=== PATIENT | male | born 1965 | race Caucasian/White ===

== ENCOUNTER → 2016-10-09 | Outpatient (CLI) | payer BC ==
[~2016-10-09] MED LIST: HYDR-3419 PO; LRT5 PO; MULT-506 PO; ONDA4TAB46 PO; OXYC-57 PO
== END | disposition home or self-care (01) ==
LOC: C.LABSPEC 17:49
PROVIDERS: ATTEND Nurse Practitioner Adult Health
DX: N20.0 Calculus of kidney (principal); R10.9 Unspecified abdominal pain

== ENCOUNTER → 2016-10-19 | Outpatient (CLI) | payer BC ==
--- NOTE | 2016-10-19 14:56 | DIAGNOSTIC IMAGING REPORT ---
KUB CLINICAL HISTORY: R10.9 Left flank [id number] flank pain COMPARISON STUDY: 10/01/2009 FINDINGS: Bilateral nephrocalcinosis. Nonobstructive bowel pattern. Calcification adjacent to the left transverse process of L3. IMPRESSION:. Mid left ureteral calculus measuring 6 x 2.5 mm. This is medially inferior to the left transverse process of L3. Bilateral nephrocalcinosis unchanged in the prior study. Nonobstructive bowel pattern. Electronically signed by: Chau Awan M.D. 10/19/2016 2:55 PM Dictated Date/Time: 10/19/2016 2:47 PM
== END | disposition home or self-care (01) ==
LOC: C.RAD 14:25
PROVIDERS: ATTEND Nurse Practitioner Adult Health
DX: R10.9 Unspecified abdominal pain (principal)

== ENCOUNTER → 2016-10-23 | Outpatient (CLI) | payer BC ==
[~2016-10-23] MED LIST changes: -LRT5 PO; -ONDA4TAB46 PO
--- NOTE | 2016-10-23 15:44 | DIAGNOSTIC IMAGING REPORT ---
TWO VIEW CHEST CLINICAL HISTORY: Nephrolithiasis. Preoperative examination. FINDINGS: PA and lateral chest radiographs are obtained. No prior studies are available for comparison at the time of dictation. The cardiomediastinal silhouette is unremarkable. There is minimal bibasilar atelectasis. The lungs and pleural spaces are otherwise clear. There is no pneumothorax. The bony thorax appears intact. IMPRESSION: No active disease in the chest. Electronically signed by: Quinton Goode M.D. 10/23/2016 3:43 PM Dictated Date/Time: 10/23/2016 3:42 PM
[2016-10-23 15:50] LABS: BASO % 0.5 %; BASO ABS # 0.04 K/uL (0-0.2); COMPLETE YES; EOS % 1.7 %; HEMATOCRIT 43.9 % (42-52); IG% 0.3 %; LYMPH % 30.4 %; LYMPH ABS # 2.27 K/uL (1.2-3.4); MEAN CELL VOLUME 83.8 fL (80-100); MEAN CORPUSCULAR HEMOGLOBIN 29.6 pg (25-34); MEAN CORPUSCULAR HGB CONC 35.3 g/dl (32-36); MEAN PLATELET VOLUME 9.1 fL (7.4-10.4); MONO % 10.6 %; NEUT % 56.5 %; PLATELET COUNT 260 K/uL (130-400); RED BLOOD COUNT 5.24 M/uL (4.7-6.1); WHITE BLOOD COUNT 7.47 K/uL (4.8-10.8)
[2016-10-23 16:11] LABS: BLOOD UREA NITROGEN 18 mg/dl (7-18); BUN/CREATININE RATIO 14.1 (10-20); CARBON DIOXIDE 27 mmol/L (21-32); CHLORIDE 109 mmol/L (98-107); POTASSIUM 3.9 mmol/L (3.5-5.1); SODIUM 144 mmol/L (136-145)
== END | disposition home or self-care (01) ==
LOC: C.CPL 15:12
PROVIDERS: ATTEND Urology
DX: N20.0 Calculus of kidney (principal)

== ENCOUNTER → 2016-10-26 | Outpatient (CLI) | payer BC ==
--- NOTE | 2016-10-26 17:01 | DIAGNOSTIC IMAGING REPORT ---
KUB CLINICAL HISTORY: N20.0 Nephrolithiasis nephrocalcinosis COMPARISON STUDY: 10/19/2016 FINDINGS: Mid left ureteral calculus has migrated distally approximately 1.5 cm. It is now medially inferior to the left transverse process of L3. Left renal nephrocalcinosis is similar. Right kidney is obscured currently by overlying bowel content. IMPRESSION: Left mid ureteral calculus slightly distal in terms of location as compared to the prior exam. Unchanging nephrocalcinosis. Electronically signed by: Chau Awan M.D. 10/26/2016 5:00 PM Dictated Date/Time: 10/26/2016 4:59 PM
== END | disposition home or self-care (01) ==
LOC: C.RAD 16:47
PROVIDERS: ATTEND Urology
DX: N20.0 Calculus of kidney (principal)

== ENCOUNTER → 2016-10-27 | Day surgery (SDC) | payer BC ==
[2016-10-20 10:48] VITALS: Ht 172.7 cm; Wt 86.4 kg
[~2016-10-27] VITALS: Ht 172.7 cm; Wt 86.4 kg
[~2016-10-27] MED LIST changes: +ATROPINE SULFATE 0.1 MG/ML 5ML SYR IV PRN; +CIPROFLOXACIN 400MG / D5W IV SCH; +DEXAMETHASONE SOD INJ 4 MG/ML VIAL ONE; +EpHEDrine SULFATE INJ 50 MG/ML AMP IV PRN; +FENTANYL CITRATE INJ 50 MCG/1 ML 2 ML VIAL IV PRN; +FENTANYL CITRATE INJ 50 MCG/1 ML 2 ML VIAL ONE; +FLUMAZENIL 0.1 MG/1 ML 10 ML VIAL IV PRN; +HYDROmorphone INJ 2 MG/ML SYR/VIAL IV PRN; +HydrALAZINE HCL 20 MG/ML VIAL IM STA; +HydrALAZINE HCL 20 MG/ML VIAL ONE; +LABETALOL HCL IV 5 MG/ML 20ML IV PRN; +LACTATED RINGER'S 1000ML 1,000 ML IV SCH; +LIDOCAINE HCL 2% 2 ML VIAL (20MG/ML) ONE; +MEPERIDINE HCL 25 MG/ML CARP IV PRN; +MIDAZOLAM HCL 1 MG/ML 2ML VIAL ONE; +NALOXONE HCL 0.4 MG/1 ML VIAL/CARP IV PRN; +ONDANSETRON INJ 2 MG/ML 2 ML VIAL IV PRN; +ONDANSETRON INJ 2 MG/ML 2 ML VIAL ONE; +PHENYLEPHRINE 100MCG/ML 5ML SYR IV PRN; +PROPOFOL IV EMULSION 10 MG/ML 20 ML VIAL IV ONE
--- NOTE | 2016-10-27 07:02 | History & Physical Bridge - SC ---
H&P Re-Evaluation Bridge Note: I have examined the patient, reviewed the History & Physical and in the interval since the performance of the History & Physical I have noted the following changes of clinical significance: No changes noted
--- NOTE | 2016-10-27 07:43 | [facility] Post Operative Brief Note ---
Immediate Operative Summary Operative Date Oct 27, 2016. Pre-Operative Diagnosis Left Ureteral Calculi Post-Operative Diagnosis Same Procedure(s) Performed Left Extracorporeal Shock Wave Lithotripsy - Ureteral Surgeon Dr. Saulo Reese Pt Sitter Surgeon(s) None Estimated Blood Loss 0 mL Findings stone in mid proximal l ureter Specimens None
--- NOTE | 2016-10-27 07:46 | Discharge Instructions-SurgCtr ---
Discharge Instructions Date of Service Oct 27, 2016. Visit Reason for Visit: Stones Discharge Discharge Diagnosis / Problem: left ureteral stone Discharge Goals Goal(s): Decrease discomfort, Increase independence, Improve disease control Activity Recommendations Activity Limitations: resume your previous activity Lifting Limitations: none Anesthesia . Post Anesthesia Instructions: If you have had General Anesthesia or IV Sedation: * Do not drive today. * Resume driving when surgeon permits. * Do not make important decisions or sign legal documents today. * Call surgeon for: 1. Temperature elevations greater than 101 degrees F. 2. Uncontrollable pain. 3. Excessive bleeding. 4. Persistent nausea and vomiting. 5. Medication intolerance (nausea, vomiting or rash). * For nausea and vomiting use only clear liquids such as: tea, soda, bouillon until nausea subsides, then gradually increase diet as tolerated. * If you have any concerns or questions, call your surgeon's office. If physician is unavailable and it is an emergency, call 911 or go to the nearest emergency room. . Diet Recommendations Home Diet: resume previous diet Procedures Procedures Performed: Left Extracorporeal Shock Wave Lithotripsy - Ureteral Pending Studies Studies pending at discharge: no Medical Emergencies . Who to Call and When: Medical Emergencies: If at any time you feel your situation is an emergency, please call 911 immediately. . Non-Emergent Contact Non-Emergency issues call your: Urologist Call Non-Emergent contact if: temperature is above 101 (no driving on narcotics ) . . "Provider Documentation" section prepared by Jaylen Reese.
--- NOTE | 2016-10-27 08:58 | Anesthesia Progress Nt - [facility] ---
Anesthesia Post Op Note Date & Time Oct 27, 2016 at 08:57 Vital Signs Pain Intensity: 2 Vital Signs Past 12 Hours Date Time Temp Pulse Resp B/P Pulse Ox O2 Delivery O2 Flow Rate FiO2 10/27/16 08:48 36.4 10/27/16 08:46 72 5 98 10/27/16 08:46 70 5 10/27/16 08:45 152/97 10/27/16 08:41 67 3 10/27/16 08:41 68 3 97 10/27/16 08:40 144/97 10/27/16 08:36 64 2 10/27/16 08:36 64 2 97 10/27/16 08:35 151/101 10/27/16 08:31 63 3 97 10/27/16 08:31 63 3 10/27/16 08:30 155/104 10/27/16 08:26 65 9 10/27/16 08:26 66 9 97 10/27/16 08:25 151/105 10/27/16 08:21 63 0 97 10/27/16 08:21 63 0 10/27/16 08:20 148/100 10/27/16 08:16 65 0 97 10/27/16 08:16 65 0 10/27/16 08:15 156/98 10/27/16 08:11 72 16 10/27/16 08:11 73 16 97 10/27/16 08:10 144/102 10/27/16 08:06 67 18 97 10/27/16 08:06 68 18 10/27/16 08:05 155/98 10/27/16 08:01 74 20 97 10/27/16 08:01 74 20 10/27/16 08:00 74 16 149/95 97 Room Air 10/27/16 08:00 149/95 10/27/16 07:56 76 2 99 10/27/16 07:56 77 2 10/27/16 07:55 159/101 10/27/16 07:51 85 5 99 10/27/16 07:51 84 5 10/27/16 07:50 158/105 10/27/16 07:46 91 10/27/16 07:46 89 158/93 99 10/27/16 07:44 36.4 91 16 158/93 98 Diffusion Mask 5 3/31/17 06:25 37 70 16 174/100 98 Room Air Notes Mental Status: alert / awake / arousable, participated in evaluation Pt Amnestic to Procedure: Yes Nausea / Vomiting: adequately controlled Pain: adequately controlled Airway Patency, RR, SpO2: stable & adequate BP & HR: stable & adequate, see Notes Hydration State: stable & adequate Anesthetic Complications: no major complications apparent The patient was given labetalol and hydralazine in the PACU for HTN.
[2016-10-27 09:13] VITALS: TEMP 36.8
[2016-10-27 09:20] VITALS: PULSE 64; O2SAT 98
[2016-10-27 09:33] VITALS: BP 180/95
--- NOTE | 2016-10-27 12:14 | OPERATIVE REPORT ---
DATE OF OPERATION: 10/27/2016 PREOPERATIVE DIAGNOSIS: Left ureteral stone. POSTOPERATIVE DIAGNOSIS: Same. PROCEDURE PERFORMED: Left ESWL. SURGEON: Dr. Reese. INDICATIONS: The patient is a 51-year-old male with a left ureteral stone who presented a week ago, could not have procedure done because he was on aspirin and for definitive ESWL. DESCRIPTION OF THE PROCEDURE: He was taken to the operating room with antibiotics and Venodyne stockings. He was given general anesthesia, placed in supine position. The camera was positioned, overtopped and the stone was visualized in 2 views and he received 3000 shocks, the majority at level 6. At the end of the procedure, he was transferred to the recovery room in stable condition. I attest to the content of the Intraoperative Record and any orders documented therein. Any exceptio ns are noted below.
== END | disposition home or self-care (01) ==
LOC: X.SURG 06:09
PROVIDERS: ATTEND Urology
DX: N20.1 Calculus of ureter (principal); Z87.442 Personal history of urinary calculi; B02.9 Zoster without complications; Z83.3 Family history of diabetes mellitus

== ENCOUNTER → 2016-11-07 | Outpatient (CLI) | payer BC ==
[~2016-11-07] MED LIST changes: -ATROPINE SULFATE 0.1 MG/ML 5ML SYR IV PRN; -CIPROFLOXACIN 400MG / D5W IV SCH; -DEXAMETHASONE SOD INJ 4 MG/ML VIAL ONE; -EpHEDrine SULFATE INJ 50 MG/ML AMP IV PRN; -FENTANYL CITRATE INJ 50 MCG/1 ML 2 ML VIAL IV PRN; -FENTANYL CITRATE INJ 50 MCG/1 ML 2 ML VIAL ONE; -FLUMAZENIL 0.1 MG/1 ML 10 ML VIAL IV PRN; -HYDROmorphone INJ 2 MG/ML SYR/VIAL IV PRN; -HydrALAZINE HCL 20 MG/ML VIAL IM STA; -HydrALAZINE HCL 20 MG/ML VIAL ONE; -LABETALOL HCL IV 5 MG/ML 20ML IV PRN; -LACTATED RINGER'S 1000ML 1,000 ML IV SCH; -LIDOCAINE HCL 2% 2 ML VIAL (20MG/ML) ONE; -MEPERIDINE HCL 25 MG/ML CARP IV PRN; -MIDAZOLAM HCL 1 MG/ML 2ML VIAL ONE; -NALOXONE HCL 0.4 MG/1 ML VIAL/CARP IV PRN; -ONDANSETRON INJ 2 MG/ML 2 ML VIAL IV PRN; -ONDANSETRON INJ 2 MG/ML 2 ML VIAL ONE; -PHENYLEPHRINE 100MCG/ML 5ML SYR IV PRN; -PROPOFOL IV EMULSION 10 MG/ML 20 ML VIAL IV ONE
--- NOTE | 2016-11-07 16:01 | DIAGNOSTIC IMAGING REPORT ---
KUB CLINICAL HISTORY: N20.0 [id number] nephrocalcinosis COMPARISON STUDY: 10/26/2016 FINDINGS: Unchanging left nephrocalcinosis. Calcification previous described is mid ureter is not well seen currently. This possibly has passed IMPRESSION: The mid left ureteral calculus is no longer identified. Unchanging left renal nephrocalcinosis. Unchanging small central right renal calcification. Electronically signed by: Chau Awan M.D. 11/07/2016 3:59 PM Dictated Date/Time: 11/07/2016 3:54 PM
== END | disposition home or self-care (01) ==
LOC: C.RAD 15:42
PROVIDERS: ATTEND Urology
DX: N20.0 Calculus of kidney (principal)

== ENCOUNTER → 2016-12-12 | Outpatient (CLI) | payer BC ==
--- NOTE | 2016-12-12 12:45 | DIAGNOSTIC IMAGING REPORT ---
KUB CLINICAL HISTORY: R10.9 Left flank pain nephrocalcinosis COMPARISON STUDY: 11/07/2016 FINDINGS: Stable left sided nephrocalcinosis. Unchanging punctate right renal calcification. Bowel pattern is nonobstructive. IMPRESSION: 1. Unchanging left and to lesser extent right renal nephrocalcinosis. 2. Nonobstructive bowel pattern. Electronically signed by: Chau Awan M.D. 12/12/2016 12:44 PM Dictated Date/Time: 12/12/2016 12:42 PM
== END | disposition home or self-care (01) ==
LOC: C.RAD 12:17
PROVIDERS: ATTEND Urology
DX: R10.9 Unspecified abdominal pain (principal); E83.59 Other disorders of calcium metabolism; N29 Other disorders of kidney and ureter in diseases classified elsewhere

== ENCOUNTER → 2016-12-29 | Outpatient (CLI) | payer BC ==
[2016-12-29 15:41] LABS: BASO % 0.5 %; BASO ABS # 0.03 K/uL (0-0.2); COMPLETE YES; EOS % 1.7 %; HEMATOCRIT 45.7 % (42-52); LYMPH % 29.4 %; LYMPH ABS # 1.89 K/uL (1.2-3.4); MEAN CELL VOLUME 86.4 fL (80-100); MEAN CORPUSCULAR HEMOGLOBIN 29.3 pg (25-34); MEAN CORPUSCULAR HGB CONC 33.9 g/dl (32-36); MONO % 11.7 %; NEUT % 56.7 %; PLATELET COUNT 268 K/uL (130-400); RED BLOOD COUNT 5.29 M/uL (4.7-6.1); WHITE BLOOD COUNT 6.43 K/uL (4.8-10.8)
[2016-12-29 15:43] LABS: URINE APPEARANCE CLEAR (CLEAR); URINE BILIRUBIN NEG (NEG); URINE COLOR YELLOW; URINE NITRITE NEG (NEG); URINE PH 5.5 (4.5-7.5); URINE SPECIFIC GRAVITY 1.021 (1.000-1.030); UROBILINOGEN NEG (NEG)
[2016-12-29 15:47] LABS: MANUAL MICROSCOPIC REQUIRED? NO; REVIEW REQ? NO
[2016-12-29 16:04] LABS: BLOOD UREA NITROGEN 21 mg/dl (7-18); BUN/CREATININE RATIO 14.1 (10-20); CARBON DIOXIDE 27 mmol/L (21-32); CHLORIDE 108 mmol/L (98-107); POTASSIUM 3.7 mmol/L (3.5-5.1); SODIUM 143 mmol/L (136-145)
== END | disposition home or self-care (01) ==
LOC: C.LAB 14:43
PROVIDERS: ATTEND Urology
DX: N20.0 Calculus of kidney (principal)

== ENCOUNTER → 2017-01-05 | Day surgery (SDC) | payer BC ==
[2017-01-01 12:21] VITALS: Ht 172.7 cm; Wt 86.4 kg
--- NOTE | 2017-01-04 15:20 | DIAGNOSTIC IMAGING REPORT ---
KUB CLINICAL HISTORY: Nephrolithiasis. COMPARISON STUDY: KUB December 12, 2016. FINDINGS: Multiple left renal calculi measure up to 9 mm. There are also suspected small right renal calculi which are partially obscured by stool. No significant change is noted since exam of December 12, 2016. A left pelvic calcification is unchanged and does not reflect a ureteral calculus. No ureteral calculi are identified. Bowel gas pattern is normal. IMPRESSION: 1. No significant change in bilateral nephrolithiasis, left greater than right. 2. No ureteral calculi identified. Electronically signed by: Dylan Dos Santos M.D. 01/04/2017 3:19 PM Dictated Date/Time: 01/04/2017 3:16 PM
[~2017-01-05] VITALS: Ht 172.7 cm; Wt 86.4 kg
[~2017-01-05] MED LIST changes: +ATROPINE SULFATE 0.1 MG/ML 5ML SYR IV PRN; +CIPROFLOXACIN 400MG / D5W IV SCH; +DEXAMETHASONE SOD INJ 4 MG/ML VIAL IV PRN; +DEXAMETHASONE SOD INJ 4 MG/ML VIAL ONE; +EpHEDrine SULFATE INJ 50 MG/ML AMP IV PRN; +FENTANYL CITRATE INJ 50 MCG/1 ML 2 ML VIAL IV PRN; +FENTANYL CITRATE INJ 50 MCG/1 ML 2 ML VIAL ONE; -HYDR-3419 PO; +KETOROLAC TROMETHAMINE 30 MG/ML VIAL IV. PRN; +LABETALOL HCL IV 5 MG/ML 20ML IV PRN; +LIDOCAINE HCL 2% 2 ML VIAL (20MG/ML) ONE; +METOCLOPRAMIDE HCL INJ 5 MG/ML 2 ML VIAL IV PRN; +MIDAZOLAM HCL 1 MG/ML 2ML VIAL ONE; +MoRPHine SULFATE 10 MG/ML CARP/VIAL IV PRN; +ONDANSETRON INJ 2 MG/ML 2 ML VIAL IV PRN; +ONDANSETRON INJ 2 MG/ML 2 ML VIAL ONE; +PHENYLEPHRINE 100MCG/ML 5ML SYR IV PRN; +PROPOFOL IV EMULSION 10 MG/ML 20 ML VIAL IV ONE
[2017-01-05] MEDS: LACTATED RINGER'S 1000ML 1,000 ML IV SCH ×2 (06:50→08:24)
--- NOTE | 2017-01-05 07:43 | [facility] Post Operative Brief Note ---
Immediate Operative Summary Operative Date Jan 05, 2017. Pre-Operative Diagnosis Left Renal Calculi Post-Operative Diagnosis Same Procedure(s) Performed Left Extracorporeal Shock Wave Lithotripsy, Repeat Surgeon Dr. Reese Plant Buyer Surgeon(s) none Estimated Blood Loss 0 mL Findings L RENAL STONE Specimens None
--- NOTE | 2017-01-05 07:47 | Discharge Instructions-SurgCtr ---
Discharge Instructions Date of Service Jan 05, 2017. Visit Reason for Visit: Nephrolithiasis N20.0 Discharge Discharge Diagnosis / Problem: post op left renal lithotripsy Discharge Goals Goal(s): Decrease discomfort, Increase independence, Improve disease control Medications Stopped Medications Name(s): NO blood thinners Activity Recommendations Activity Limitations: resume your previous activity Anesthesia . Post Anesthesia Instructions: If you have had General Anesthesia or IV Sedation: * Do not drive today. * Resume driving when surgeon permits. * Do not make important decisions or sign legal documents today. * Call surgeon for: 1. Temperature elevations greater than 101 degrees F. 2. Uncontrollable pain. 3. Excessive bleeding. 4. Persistent nausea and vomiting. 5. Medication intolerance (nausea, vomiting or rash). * For nausea and vomiting use only clear liquids such as: tea, soda, bouillon until nausea subsides, then gradually increase diet as tolerated. * If you have any concerns or questions, call your surgeon's office. If physician is unavailable and it is an emergency, call 911 or go to the nearest emergency room. . Diet Recommendations Home Diet: resume previous diet Procedures Procedures Performed: Left Extracorporeal Shock Wave Lithotripsy, Repeat Pending Studies Studies pending at discharge: no Medical Emergencies . Who to Call and When: Medical Emergencies: If at any time you feel your situation is an emergency, please call 911 immediately. . Non-Emergent Contact Non-Emergency issues call your: Urologist . . "Provider Documentation" section prepared by Jaylen Reese. .
--- NOTE | 2017-01-05 08:43 | Anesthesia Progress Nt - [facility] ---
Anesthesia Post Op Note Date & Time Jan 05, 2017 at 08:43 Vital Signs Pain Intensity: 0 Vital Signs Past 12 Hours Date Time Temp Pulse Resp B/P (MAP) Pulse Ox O2 Delivery O2 Flow Rate FiO2 01/05/17 08:26 36.4 80 16 01/05/17 08:26 79 16 96 01/05/17 08:22 136/79 01/05/17 08:21 80 15 01/05/17 08:21 80 15 96 01/05/17 08:17 137/78 01/05/17 08:16 83 14 01/05/17 08:16 83 14 96 01/05/17 08:12 144/81 01/05/17 08:11 85 14 96 01/05/17 08:11 85 14 01/05/17 08:07 143/80 01/05/17 08:06 84 15 01/05/17 08:06 84 15 99 01/05/17 08:02 134/83 01/05/17 08:01 82 16 01/05/17 08:01 83 16 99 01/05/17 07:57 141/92 01/05/17 07:56 81 15 99 01/05/17 07:56 80 15 01/05/17 07:53 154/100 01/05/17 07:51 36.7 77 16 154/100 96 Humidified Air 6 Mask 01/05/17 06:26 36.7 64 16 147/84 (105) 99 Room Air Notes Mental Status: alert / awake / arousable, participated in evaluation Pt Amnestic to Procedure: Yes Nausea / Vomiting: adequately controlled Pain: adequately controlled Airway Patency, RR, SpO2: stable & adequate BP & HR: stable & adequate Hydration State: stable & adequate Anesthetic Complications: no major complications apparent
[2017-01-05 09:02] VITALS: BP 130/79; PULSE 73; TEMP 36.8; O2SAT 97
--- NOTE | 2017-01-05 11:22 | OPERATIVE REPORT ---
DATE OF OPERATION: 01/05/2017 PREOPERATIVE DIAGNOSIS: Left renal stone. POSTOPERATIVE DIAGNOSIS: Same. PROCEDURE PERFORMED: Left ESWL. SURGEON: Dr. Reese. ANESTHESIA: General. INDICATIONS: The patient is a 51-year-old male with a left renal stone here for elective ESWL. OPERATION AND FINDINGS: DESCRIPTION OF THE PROCEDURE: The patient was taken to the operating room where general anesthesia was administered. He was placed in supine position Venodyne stockings were placed. He was given IV antibiotics and then general anesthesia. The stone was visualized in 2 views and he was given 2500 shocks, the majority at level 5. At the end of the procedure, there appeared to be some fragmentation of the stone. The patient was transferred to the recovery room in stable condition. I attest to the content of the Intraoperative Record and any orders documented therein. Any exception s are noted below.
== END | disposition home or self-care (01) ==
LOC: X.SURG 06:08
PROVIDERS: ATTEND Urology
DX: N20.0 Calculus of kidney (principal)

== ENCOUNTER → 2017-02-01 | Outpatient (CLI) | payer BC ==
[~2017-02-01] MED LIST changes: -ATROPINE SULFATE 0.1 MG/ML 5ML SYR IV PRN; -CIPROFLOXACIN 400MG / D5W IV SCH; -DEXAMETHASONE SOD INJ 4 MG/ML VIAL IV PRN; -DEXAMETHASONE SOD INJ 4 MG/ML VIAL ONE; -EpHEDrine SULFATE INJ 50 MG/ML AMP IV PRN; -FENTANYL CITRATE INJ 50 MCG/1 ML 2 ML VIAL IV PRN; -FENTANYL CITRATE INJ 50 MCG/1 ML 2 ML VIAL ONE; -KETOROLAC TROMETHAMINE 30 MG/ML VIAL IV. PRN; -LABETALOL HCL IV 5 MG/ML 20ML IV PRN; -LIDOCAINE HCL 2% 2 ML VIAL (20MG/ML) ONE; -METOCLOPRAMIDE HCL INJ 5 MG/ML 2 ML VIAL IV PRN; -MIDAZOLAM HCL 1 MG/ML 2ML VIAL ONE; -MoRPHine SULFATE 10 MG/ML CARP/VIAL IV PRN; -ONDANSETRON INJ 2 MG/ML 2 ML VIAL IV PRN; -ONDANSETRON INJ 2 MG/ML 2 ML VIAL ONE; -PHENYLEPHRINE 100MCG/ML 5ML SYR IV PRN; -PROPOFOL IV EMULSION 10 MG/ML 20 ML VIAL IV ONE
--- NOTE | 2017-02-01 12:48 | DIAGNOSTIC IMAGING REPORT ---
KUB HISTORY:51 [id number] nephrolithiasis. History of prior lithotripsy. COMPARISON: 01/04/2017. TECHNIQUE: KUB radiograph. FINDINGS: Calcification within the region of the inferior central pelvis is unchanged, 8 mm. Multiple calcifications are seen with the expected regions of the kidneys bilaterally measuring up to 4-5 mm. The previously seen calculus measuring up to 8 mm within the region of the interpolar left kidney is no longer identified. No calculi are seen within the expected regions of the ureters on either side. The bowel gas pattern is nonobstructive. No fracture. IMPRESSION: 1. Bilateral nephrolithiasis redemonstrated, left greater than right. Previously seen 8 mm calculus in the interpolar left kidney is no longer present. 2. No ureterolithiasis identified. The above report was generated using voice recognition software. It may contain grammatical, syntax or spelling errors. Electronically signed by: Florencio Buck 02/01/2017 12:47 PM Dictated Date/Time: 02/01/2017 12:43 PM
== END | disposition home or self-care (01) ==
LOC: C.RAD 12:17
PROVIDERS: ATTEND Urology
DX: N20.0 Calculus of kidney (principal)

== ENCOUNTER → 2017-05-03 | Outpatient (CLI) | payer BC ==
--- NOTE | 2017-05-03 16:06 | DIAGNOSTIC IMAGING REPORT ---
KUB HISTORY: N20.0 Nephrolithiasis COMPARISON: KUB 02/01/2017. FINDINGS: The bowel gas pattern is unremarkable. There are no dilated loops of small bowel to suggest an obstruction. Stable bilateral renal calculi. No ureteral calculi identified. There are 2 calcifications within the left deep pelvis which are also unchanged. These could represent bladder stones. No pneumoperitoneum or pneumatosis. IMPRESSION: Stable bilateral nephrolithiasis. No ureteral calculi identified. Electronically signed by: Federico Yang M.D. 05/03/2017 4:04 PM Dictated Date/Time: 05/03/2017 4:02 PM
== END | disposition home or self-care (01) ==
LOC: C.RAD 15:01
PROVIDERS: ATTEND Urology
DX: N20.0 Calculus of kidney (principal)

== ENCOUNTER → 2017-08-09 | Outpatient (CLI) | payer OTHER ==
[~2017-08-09] MED LIST changes: -OXYC-57 PO
--- NOTE | 2017-08-09 15:50 | DIAGNOSTIC IMAGING REPORT ---
KUB CLINICAL HISTORY: Nephrolithiasis. FINDINGS: 2 AP supine abdominal radiographs are compared to study dated 05/03/2017 and correlated with abdominal CT dated 08/10/2009. There are numerous bilateral nonobstructing renal calculi measuring up to 5 mm. There is no radiographic evidence of ureteral stone. Prostatic calcifications are observed in the pelvis. No bowel obstruction is seen. The bony structures appear intact. IMPRESSION: Bilateral nephrolithiasis, similar in appearance to previous. Electronically signed by: Quinton Goode M.D. 08/09/2017 3:49 PM Dictated Date/Time: 08/09/2017 3:46 PM
== END | disposition home or self-care (01) ==
LOC: C.RAD 15:28
PROVIDERS: ATTEND Urology
DX: N20.0 Calculus of kidney (principal)